=== PATIENT | female | born 2000 | race Caucasian/White ===

== ENCOUNTER 2021-07-07 19:57 | Emergency (ER) | payer SELFPAY ==
[~2021-07-07] VITALS: Ht 165.1 cm; Wt 85.9 kg
[2021-07-07 19:57] VITALS: BP 113/67
[2021-07-07 20:54] LABS: BACTERIA,URINE 0 /HPF (0-FEW); BILIRUBIN,URINE NEG (NEG); CLARITY,URINE CLEAR; COLOR,URINE YELLOW; GLUCOSE,URINE NEG (NEG); NITRITE,URINE NEG (NEG); RBC,URINE 0 /HPF (0-2); SQUAMOUS EPITHELIAL CELL,UR FEW /LPF; UROBILINOGEN,URINE 0.2 mg/dL (0.2 mg/dL)
--- NOTE | 2021-07-07 22:08 | PHYS DOC ---
Adult General Chief Complaint Chief Complaint: SEXUALLY TRANSMITTED DISEASE HPI HPI Patient is a otherwise healthy 20-year-old female who presents with a chief complaint of concern for yeast infection. States she had one before and thinks she had one now because she had a slight odor around vaginal opening. Denies any type of vaginal discharge, or pain. Denies any history of STDs or concern for exposure to STDs. Denies any recent traumas, travels, illnesses, fevers, chest pain, shortness of breath, abdominal or pelvic pain, dysuria, hematuria. Review of Systems Review of Systems Review of systems otherwise unremarkable except noted in HPI Allergies Allergies Allergies Coded Allergies Type Severity Reaction Last Updated Verified No Known Drug Allergies 07/07/21 No Physical Exam Physical Exam Constitutional: Well developed, well nourished, no acute distress, non-toxic appearance. [] HENT: Normocephalic, atraumatic, bilateral external ears normal, oropharynx moist, no oral exudates, nose normal. [] Eyes: conjunctiva normal, no discharge. [] Neck: Normal range of motion, no tenderness, supple, no stridor. [] Cardiovascular:Heart rate regular rhythm, no murmur [] Lungs & Thorax: Bilateral breath sounds clear to auscultation [] Abdomen: soft, no tenderness, no masses, no pulsatile masses. [] Skin: Warm, dry, no erythema, no rash. [] Back: No tenderness, no CVA tenderness. [] Extremities: No tenderness, no cyanosis, no clubbing, ROM intact, no edema. [] Neurologic: Alert and oriented X 3, normal motor function, normal sensory function, no focal deficits noted. [] Psychologic: Affect normal, judgement normal, mood normal. [] Current Patient Data Lab Results Laboratory Tests Test 07/07/21 20:10 07/07/21 20:22 Urine Collection Type Unknown Urine Color Yellow Urine Clarity Clear Urine pH 8.0 Urine Specific [employer] 1.020 Urine Protein Neg (NEG-TRACE) Urine Glucose (UA) Neg mg/dL (NEG) Urine Ketones (Stick) Neg mg/dL (NEG) Urine Blood Neg (NEG) Urine Nitrite Neg (NEG) Urine Bilirubin Neg (NEG) Urine Urobilinogen Dipstick 0.2 mg/dL (0.2 mg/dL) Urine Leukocyte Esterase Neg (NEG) Urine RBC 0 /HPF (0-2) Urine WBC 1-4 /HPF (0-4) Urine Squamous Epithelial Cells Few /LPF Urine Bacteria 0 /HPF (0-FEW) POC Urine HCG, Qualitative hcg negative (Negative) Microbiology 07/07/21 Wet Prep - Final, Complete EKG EKG [] Radiology/Procedures Radiology/Procedures [] Heart Score C/O Chest Pain: No Risk Factors: Risk Factors: DM, Current or recent (<one month) smoker, HTN, HLP, family history of CAD, obesity. Risk Scores: Risk Factors: DM, Current or recent (<one month) smoker, HTN, HLP, family history of CAD, obesity. Course & Med Decision Making Course & Med Decision Making Patient is a 20-year-old female who presents with concern for yeast infection Vital signs not concerning. Physical exam noted above. Patient deferred speculum exam. Urinalysis not concerning for UTI or . Wet prep with no concerning findings. GC chlamydia pending. Patient states that she does not think that she has these and will defer ross tment until results, and if positive will take treatment. Advised to follow-up in the morning with primary care physician. Gave return precautions to the ED. Patient grateful, verbalized understanding and agreed with plan of discharge. Dragon Disclaimer Dragon Disclaimer This electronic medical record was generated, in whole or in part, using a voice recognition dictation system. Departure Departure: Impression: Primary Impression: Vaginal odor Disposition: HOME / SELF CARE / HOMELESS Condition: GOOD Referrals: PCP,PRECIOUS (PCP) FLAKITO CELESTE Additional Instructions: Thank you for coming into the emergency department tonight and allowing us to take care of you. As we discussed, your urinalysis was not suggestive of urinary tract infection. You are not . And you did not have any yeast, trichomonas or bacterial vaginosis on your swabs. Your gonorrhea and Chlamydia tests should result in 1 to 2 days and per our conversation you will be notified if they are positive and treatment can be given at that time. Please follow-up with your primary care physician in the morning to update on your ED visit and set up a follow-up as needed. Please come back with new or concerning symptoms as we discussed. CUAUHTEMOC CARTER MD Jul 07, 2021 22:08
[2021-07-09 16:11] LABS: CHLAMYDIA PROBE Negative (Negative)
== END 2021-07-07 22:13 | disposition home or self-care (01) ==
LOC: ER 19:57
DX: N89.8 Other specified noninflammatory disorders of vagina (principal)
CPT/HCPCS: 81001; 81025; 87491; 87591; 99283; Q0111

== ENCOUNTER 2021-07-20 09:22 | Emergency (ER) | payer SELFPAY ==
[~2021-07-20] VITALS: Ht 165.1 cm; Wt 81.0 kg
[2021-07-20 09:47] VITALS: BP 138/92
--- NOTE | 2021-07-20 09:58 | PHYS DOC ---
Past History Past Surgical History: No Surgical History (PARKER MANZANO APRN) Alcohol Use: None (PARKER MANZANO APRN) General Adult EDM: Chief Complaint: LACERATION/AVULSION HPI: HPI: Patient is a 20-year-old female who presents to the emergency department after stepping on a nail. Patient is reporting left foot pain. She is unsure of her last tetanus shot. Patient denies any decreased range of motion, inability to bear weight, decrease sensation of her extremities. (PARKER MANZANO APRN) Review of Systems: Review of Systems: Musculoskeletal: See HPI Integument: See hpi Neurologic: See HPI (PARKER MANZANO APRN) Allergies: Allergies: Allergies Coded Allergies Type Severity Reaction Last Updated Verified No Known Drug Allergies 07/07/21 No (PARKER MANZAON APRN) Physical Exam: PE: Constitutional: Well developed, well nourished, no acute distress, non-toxic appearance. [] HENT: Normocephalic, atraumatic, bilateral external ears normal, oropharynx moist, no oral exudates, nose normal. [] Eyes: PERRL, EOMI, conjunctiva normal, no discharge. [] Neck: Normal range of motion, no stridor Cardiovascular: Normal peripheral perfusion Lungs & Thorax: Normal work of breathing, no tachypnea Abdomen: Soft and flat Skin: Warm, dry, no erythema, no rash. [] Back: Normal range of motion Extremities: No tenderness, no cyanosis, no clubbing, ROM intact, no edema. Left foot: Small puncture with no active bleeding noted to plantar aspect of left foot, no palpable foreign body, range of motion intact, neuro intact Neurologic: Alert and oriented X 3, normal motor function, normal sensory function, no focal deficits noted. [] Psychologic: Affect normal, judgement normal, mood normal. [] (PARKER MANZANO APRN) Current Patient Data: Vital Signs: Vital Signs Date Time Temp Pulse Resp B/P (MAP) Pulse Ox O2 Delivery O2 Flow Rate FiO2 07/20/21 09:47 97.0 88 16 138/92 (107) 98 (PARKER MANZANO APRN) EKG: EKG: [] (PARKER MANZANO APRN) Radiology/Procedures: Radiology/Procedures: []REASON: r/o foreign body, stepped on nail PROCEDURE: FOOT LEFT 3V XR FOOT_LEFT 3 VIEWS DATE: 07/20/2021 10:00 AM INDICATION: Reason: r/o foreign body, stepped on nail / Spl. Instructions: / History: COMPARISON: None. FINDINGS: Bones: There is no evidence of acute fracture or dislocation. Joints: The joint spaces are normal. Miscellaneous: No radiopaque foreign body. IMPRESSION: No radiopaque foreign body. Electronically signed by: Precious Rios MD (07/20/2021 10:35 AM) [id number] DICTATED AND SIGNED BY: PRECIOUS RIOS MD DATE: 07/20/21 1034 CC: PARKER MANZANO APRN; PCP,NO ~MTH0 0 (PARKER MANZANO APRN) Heart Score: C/O Chest Pain: N/A Risk Factors: Risk Factors: DM, Current or recent (<one month) smoker, HTN, HLP, family history of CAD, obesity. Risk Scores: Score 0 - 3: 2.5% MACE over next 6 weeks - Discharge Home Score 4 - 6: 20.3% MACE over next 6 weeks - Admit for Clinical Observation Score 7 - 10: 72.7% MACE over next 6 weeks - Early Invasive Strategies (PARKER MANZANO APRN) Course & Med Decision Making: Course & Med Decision Making Pertinent Labs and Imaging studies reviewed. (See chart for details) Patient presents to the emergency department for a puncture to her left foot after stepping on a nail. X-ray was performed to rule out any foreign body or fracture and this was negative for any acute findings. Patient's wound was cleansed in the emergency department and a dressing was placed. Patient is unsure of her last tetanus and this was updated in the emergency department. Patient educated on wound care. Patient advised to take Tylenol and ibuprofen for her pain at home. I discussed with patient all findings and diagnostic testing as well as the need to follow-up with PCP for further evaluation and treatment or return to the ER if any new or worsening symptoms. Strict return p recautions were also discussed at length. Patient voiced understanding and agreement with the plan. Patient is hemodynamically stable at the time of disposition. (PARKER MANZANO APRN) Dragon Disclaimer: Dragon Disclaimer: This electronic medical record was generated, in whole or in part, using a voice recognition dictation system. (PARKER MANZANO APRN) Attending Co-Sign The patient was seen and interviewed as well as examined at the bedside. The chart was reviewed. The case was discussed. Agree with the plan of care. (LESLEY SEGOVIA DO) Departure Departure: Impression: Primary Impression: Puncture wound of foot Qualified Codes: S91.332A - Puncture wound without foreign body, left foot, initial encounter Disposition: HOME / SELF CARE / HOMELESS Condition: GOOD Referrals: PCP,NO (PCP) Patient Instructions: Puncture Wound Additional Instructions: You are seen in the emergency department after stepping on a nail. An x-ray was performed to rule out any injury or foreign body and this was negative. Your tetanus was updated today. Please keep your wound clean and dry. Please monitor for any signs of infection which include redness, warmth, swelling or drainage. He can take Tylenol and/or ibuprofen for your pain. Follow-up with your primary care provider in a week if your symptoms continue. Return to the emergency department if you develop worsening of your pain, any signs of infection, inability to bear weight or walk or decrease sensation in your extremity. PARKER MANZANO APRN Jul 20, 2021 09:58 LESLEY SEGOVIA DO Jul 21, 2021 06:11
[2021-07-20] MEDS ORDERED: DIPHTH,PERTUSS(ACELL),TET TOX 0.5 ML DISP.SYRIN. VAX IM ONE (10:00)
--- NOTE | 2021-07-20 10:37 | RAD ---
XR FOOT_LEFT 3 VIEWS DATE: 07/20/2021 10:00 AM INDICATION: Reason: r/o foreign body, stepped on nail / Spl. Instructions: / History: COMPARISON: None. FINDINGS: Bones: There is no evidence of acute fracture or dislocation. Joints: The joint spaces are normal. Miscellaneous: No radiopaque foreign body. IMPRESSION: No radiopaque foreign body. Electronically signed by: Rodney Mayer MD (07/20/2021 10:35 AM) [id number]
== END 2021-07-20 11:12 | disposition home or self-care (01) ==
LOC: ER 09:22
DX: S91.332A Puncture wound without foreign body, left foot, initial encounter (principal); W22.8XXA Striking against or struck by other objects, initial encounter; Y93.89 Activity, other specified; Y92.89 Other specified places as the place of occurrence of the external cause; Y99.8 Other external cause status
CPT/HCPCS: 73630; 90471; 90715; 99283